=== PATIENT | male | born 1985 | race Hispanic/Latino ===

== ENCOUNTER 2021-03-02 15:44 | Emergency (ER) | payer OTHER ==
[2021-03-02] MEDS ORDERED: Ketorolac Tromethamine 30 MG/ML VIAL ONE (16:16)
[2021-03-02] MEDS ORDERED: diphenhydrAMINE 12.5 MG/5 ML UDCUP ONE (16:16)
[2021-03-02] MEDS ORDERED: diphenhydrAMINE 50 MG/ML VIAL ONE (16:17)
== END 2021-03-02 17:05 | disposition home or self-care (01) ==
LOC: MADERS 15:44
DX: G43.909 Migraine, unspecified, not intractable, without status migrainosus (principal)
CPT/HCPCS: 70450; 96374; 96375; J1200; J1885; Q0163